=== PATIENT | female | born 1970 | race Caucasian/White ===

== ENCOUNTER → 2021-08-14 | Outpatient (CLI) | payer OTHER ==
--- NOTE | 2021-08-14 17:51 | CT ---
EXAMINATION TYPE: CT chest w con DATE OF EXAM: 08/14/2021 COMPARISON: Chest x-ray 6 months ago. HISTORY: SOLITARY PULMONARY NODULE CT DLP: 480.7 mGycm. Automated Exposure Control for Dose Reduction was Utilized. TECHNIQUE: CT scan of the thorax is performed following with IV Contrast, patient injected with 70ml mL of Isovue 300. FINDINGS: LUNGS: There is a calcified 4 mm right basilar nodule or benign granuloma axial image 36. A few addit ional scattered micronodules are present throughout the right lung, some are calcified. No significan t greater than 5 mm noncalcified pulmonary nodules or masses. There is no pleural effusion or pneum othorax seen. The tracheobronchial tree is patent. 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 There are no greater than 1 cm hilar or mediastinal lymph nodes. No cardiomegaly or pericardial eff usion is seen. There is four vessel origin from the aortic arch which is normal variant OTHER: Moderate multilevel lateral spurring in the mid to lower thoracic spine. There is lap band dev ice just below diaphragm satisfactory in position and angle. IMPRESSION: No significant greater than 5 mm noncalcified pulmonary nodules or masses.
== END | disposition home or self-care (01) ==
LOC: RADCTMAIN 16:02
PROVIDERS: ATTEND Internal Medicine
DX: R91.1 Solitary pulmonary nodule (principal)
CPT/HCPCS: 82565; 84520; 71260; 36415; Q9967

== ENCOUNTER 2021-11-10 11:04 | Day surgery (SDC) | payer OTHER ==
[2021-11-06 15:33] VITALS: BMI 33.9
[~2021-11-10 11:04] MED LIST: LACTATED RINGERS 1,000 ML IV SCH; LIDOCAINE 1% (10MG/ML) FOR IV START INTRADERMA PRN; Pre Op ABX Message 1 EACH MISC MISCELLANE ONE
[2021-11-10 11:46] VITALS: TEMP 97.1
[2021-11-10] MEDS ORDERED: ONDANSETRON 4 MG/2 ML VIAL IVP ONE (11:57)
[2021-11-10 11:58] LABS: Glucose,Whole Blood 160 mg/dL (70-110)
[2021-11-10] MEDS ORDERED: ONDANSETRON 4 MG/2 ML VIAL ONE (12:06)
[2021-11-10] MEDS ORDERED: fentaNYL (PF) 50 MCG/ML 2 ML AMP ONE (12:25)
[2021-11-10] MEDS ORDERED: MIDAZOLAM 2 MG/2 ML VIAL ONE (12:25)
[2021-11-10] MEDS ORDERED: PROPOFOL 10 MG/ML 20 ML VIAL IV ONE (12:25)
[2021-11-10] MEDS ORDERED: LIDOCAINE 2% INJ 20 MG/ML SQ ONE (12:30)
--- NOTE | 2021-11-10 13:14 | P.OP ---
Date of Procedure: 11/10/21 Preoperative Diagnosis: Right middle finger trigger finger Right middle finger Dupuytren's Postoperative Diagnosis: Same Procedure(s) Performed: 1 right middle finger trigger finger release 2 right middle finger Dupuytren's excision Anesthesia: MAC, local Surgeon: Leidy Graham Estimated Blood Loss (ml): 3 Condition: stable Disposition: PACU Indications for Procedure: Edna is a 51-year-old female who has a middle finger trigger finger. This is been bothering her for quite some time. She also has some underlying Dupuytren's. There is about 10 contracture at the MP joint with the palpable pretendinous cord. We had a long discussion about her treatment options and she would like her trigger finger released. Since the Dupuytren's cord is right over our incision we will excise the cord that is accessible from the trigger finger incision. Description of Procedure: Patient, operative extremity, and procedure were identified in the preoperative holding area. After informed consent was obtained the patient was brought back to the operating room where some sedation was provided by the anesthesia team. After formal timeout was a local block was performed with 1% lidocaine. Extremity was then prepped and draped in normal sterile fashion. Tourniquet was inflated. An oblique incision was made just proximal to the A1 loren of the middle finger. The pretendinous cord was dissected out from surrounding tissues and excised. Dissection was then carried down to the A1 loren which was found to be quite thick. This was cut longitudinally with a scalpel. This was then released in its entirety to the A2 loren distally with scissors. Proximally the palmar loren was also released. The digit was then taken through full range of motion and there was no further catching or clicking. The tourniquet was let down hemostasis was achieved and the wound was closed with 4-0 nylon suture. Wound was dressed with Adaptic 4 x 4's cast padding and an Darren wrap. Patient was aroused by the anesthesia team and brought back to PACU in stable condition.
[2021-11-10 13:17] VITALS: BP 116/74; PULSE 63; RESP 20
== END 2021-11-10 13:35 | disposition home or self-care (01) ==
LOC: OR 11:04
PROVIDERS: ATTEND Orthopaedic Surgery Hand Surgery
DX: M65.331 Trigger finger, right middle finger (principal); M72.0 Palmar fascial fibromatosis [Dupuytren]; I11.9 Hypertensive heart disease without heart failure; E78.5 Hyperlipidemia, unspecified; E11.9 Type 2 diabetes mellitus without complications; E03.9 Hypothyroidism, unspecified; I25.2 Old myocardial infarction; Z96.0 Presence of urogenital implants; Z97.3 Presence of spectacles and contact lenses; Z95.1 Presence of aortocoronary bypass graft; Z95.5 Presence of coronary angioplasty implant and graft; Z98.84 Bariatric surgery status; Z98.890 Other specified postprocedural states; Z79.84 Long term (current) use of oral hypoglycemic drugs; Z79.02 Long term (current) use of antithrombotics/antiplatelets; Z79.890 Hormone replacement therapy; Z79.899 Other long term (current) drug therapy; Z79.82 Long term (current) use of aspirin
CPT/HCPCS: 26055; J2001; J2250; J2405; J3010; J2704